=== PATIENT | male | born 1975 | race Caucasian/White ===

== ENCOUNTER 2017-06-13 14:35 | Emergency (ER) | payer SELFPAY ==
--- NOTE | 2017-06-13 15:40 | ED Physician Chart ---
Chief Complaint/HPI - Patient Information Date Seen:: 06/13/17 Time Seen:: 15:25 Chief Complaint:: low back pain History of Present Illness:: 3 days ago when getting out of the shower patient noted low back pain. No trauma. Pain does not radiate. Patient denies bladder or bowel problems. 6 months ago patient had low back pain which lasted for 3 weeks. Allergies:: Allergies Allergy/AdvReac Type Severity Reaction Status Date / Time No Known Allergies Allergy Verified 06/13/17 14:59 Vitals:: Vital Signs - 8 hr 06/13/17 14:51 Temp 97.9 F HR 63 RR 16 BP 134/78 O2 Sat % 98 Historian:: Patient Review:: Nurse's Note Reviewed Review of Systems - Review of Systems General/Constitutional: No fever, No chills Skin: No skin lesions Head: No headache Eyes: No loss of vision ENT: No earache Neck: No neck pain Cardio Vascular: No chest pain, No palpitations Pulmonary: No SOB, No cough GI: No nausea, No vomiting G/U: No dysuria, Hematuria Musculoskeletal: No bone or joint pain, No back pain Endocrine: No polyuria, No polydipsia Psychiatric: No prior psych history, No depression, No anxiety, No suicidal ideation Hematopoietic: No bruising, No lymphadenopathy Allergic/Immuno: No urticaria, No angioedema Neurological: No syncope, No focal symptoms Family Medical History - Family Member Mother History Unknown: Yes Ethnicity: Living Status: Still Living Hx Family Cancer: No Hx Family Coronary Artery Disease: No Hx Family Congestive Heart Failure: No Hx Family Hypertension: No Hx Family Stroke: No Physical Exam - Physical Examination General/Constitutional: Well-developed, well-nourished, Alert, No distress Head: Atraumatic Eyes: Lids, conjuctiva normal, PERRL Skin: Nl inspection, No rash ENMT: External ears, nose nl Neck: No nuchal rigidity Respiratory: Nl effort/Exclusion, Clear to Auscultation Cardio Vascular: RRR, No murmur, gallop, rubs GI: No tenderness/rebounding/guarding, No organomegaly, No hernia, Normal BS's : No CVA tenderness Extremities: No tenderness or effusion Neuro/Psych: Alert/oriented, No focal deficits Other Neuro/Psych comments:: Straight leg raising 90 bilaterally; deep tendon reflexes knees and ankles 2/4. Misc: Normal back Other Misc comments:: No scoliosis noted Assessment - Assessment General Assessment: I explained to the patient that x-rays were not indicated as the pain is very likely in the muscles only ED Septic Shock - . Is Septic Shock (SBP<90, OR Lactate>4 mmol\L) present?: No - <6hrs of presentation: Vital Signs: Vital Signs - 8 hr 06/13/17 14:51 Temp 97.9 F HR 63 RR 16 BP 134/78 O2 Sat % 98 Reassessment (Disposition) - Reassessment Reassessment Condition:: Unchanged - Diagnosis Diagnosis:: Musculoskeletal low back pain - Aftercare/Follow up Instructions Medication Prescribed:: Flexeril 10 mg #20 to take 1 times a day; ibuprofen 400 mg #30 to take 1 3 times a day - Patient Disposition Discharge/Transfer:: Home Condition at Disposition:: Stable, Unchanged
== END 2017-06-13 16:03 | disposition home or self-care (01) ==
LOC: ER 14:35
DX: M54.5 Low back pain (principal)
CPT/HCPCS: 99283; 96372; J1885; Z7502